=== PATIENT | female | born 1985 | race Two or more races ===

== ENCOUNTER 2020-04-16 18:52 | Emergency (ER) | payer OTHER ==
[~2020-04-16] VITALS: Ht 157.5 cm; Wt 80.7 kg
[~2020-04-16 18:52] MED LIST: NITROFURANTOIN100 M2 ORAL; TRAMADOL HCL50 MG ORAL; ZOFRAN4 M1 ORAL
[2020-04-16] MEDS ORDERED: METFORMIN HCL500 M1 ORAL (19:12)
[2020-04-16] MEDS ORDERED: LOSARTAN-HCTZ1 EAC1 ORAL (19:12)
--- NOTE | 2020-04-16 19:19 | NUR ---
ED Nurse Note: PT AMBULATED TO ED FROM OPTOMITRIST OFFICE, PT IS A HIGH RISK FOR GLAUCOMA AND WAS SEEN TODAY BY HER EYE MD AFTER SEEING "FLOATERS" IN HER L EYE FOR 20+ MINS TODAY, MD STATED THERE WAS HEMMORHAGE IN THE BACK OF HER L EYE AND WAS INSTRUCTED TO COME TO THE ED, PT REPORTS 8/10 PAIN AT BASE OF SKULL. VSS. PT IS A&OX4,
[2020-04-16 19:24] VITALS: BP 121/86
--- NOTE | 2020-04-16 19:50 | NUR ---
ED Nurse: PT TO CT
--- NOTE | 2020-04-16 19:58 | NUR ---
ED Nurse Note: PT BACK FROM CT
--- NOTE | 2020-04-16 20:22 | Diagnostic Imaging Report ---
EXAM: CT Orbits Without Intravenous Contrast CLINICAL HISTORY: CVA TECHNIQUE: Axial computed tomography images of the orbits without intravenous contrast. CTDI is 53.4 mGy and DLP is 992.1 mGy-cm. One or more of the following dose reduction techniques were used: automated exposure control, adjustment of the mA and/or kV according to patient size, use of iterative reconstruction technique. COMPARISON: None FINDINGS: Orbits: The bony orbits are maintained. The globes are intact. The extraocular muscles appear symmetric. Sinuses: Mucous retention cysts are seen within the left maxillary sinus. No air-fluid levels. Bones/joints: No acute fracture. Soft tissues: Unremarkable. IMPRESSION: There is no acute orbital pathology. The bony orbits are intact.
--- NOTE | 2020-04-16 20:25 | Diagnostic Imaging Report ---
EXAM: CT Head Without Intravenous Contrast CLINICAL HISTORY: CVA TECHNIQUE: Axial computed tomography images of the head/brain without intravenous contrast. CTDI is 53.4 mGy and DLP is 992.1 mGy-cm. One or more of the following dose reduction techniques were used: automated exposure control, adjustment of the mA and/or kV according to patient size, use of iterative reconstruction technique. COMPARISON: None FINDINGS: Brain: Unremarkable. No hemorrhage. No significant white matter disease. No edema. Ventricles: Unremarkable. No ventriculomegaly. Bones/joints: Unremarkable. No acute fracture. Soft tissues: Unremarkable. Sinuses: Unremarkable as visualized. No acute sinusitis. Mastoid air cells: Unremarkable as visualized. No mastoid effusion. IMPRESSION: No acute intercranial process.
--- NOTE | 2020-04-16 20:32 | Emergency Room Report ---
History of Present Illness General Chief Complaint: Eye Problems Source: Patient Present Illness HPI This patient was seen by an phlebotomy tech today found to have a retinal hemorrhage. The phlebotomy tech had instructed her to follow-up with their primary care physician for further evaluation to include blood pressure control, carotid ultrasound, cardiac echo and other laboratory work-up. Patient states she is very concerned because the phlebotomy tech had indicated she possibly could have had a small "stroke." Patient has never had anything like this previously. She was having floaters today. The phlebotomy tech did dilate her eye and do a full eye exam. That is when he found the retinal hemorrhage. She states she does have some head "pressure." She has no vision loss. She has no weakness. She denies tingling or numbness. She has no other complaints. Allergies: Coded Allergies: NO KNOWN ALLERGIES (Verified Allergy, Unknown, 01/22/15) COVID-19 Screening Contact w/high risk pt: No Experienced COVID-19 symptoms?: No COVID-19 Testing performed LANDING SIGNAL OFFICER: No Patient History Past Medical History: see triage record, DM, HTN Social History: Denies: smoking, alcohol use, drug use Last Menstrual Period: 03/27/20 Now: No : 1 Para: 0 Reviewed Nursing Documentation: PMH: Agreed; PSxH: Agreed Nursing Documentation-PMH Hx Hypertension: Yes Hx Diabetes: Yes Hx Gastrointestinal Problems: Yes - IUD removal due to vaginal bleeding in 2014 Review of Systems All Other Systems: negative except mentioned in HPI Physical Exam Vital Signs Date Time Temp Pulse Resp B/P (MAP) Pulse Ox O2 Delivery O2 Flow Rate FiO2 04/16/20 19:03 99.0 132 18 121/86 (98) 96 Room Air Sp02 EP Interpretation: reviewed, normal General Appearance: no apparent distress, alert, GCS 15, non-toxic Head: normocephalic, atraumatic Eyes: bilateral eye normal inspection, bilateral eye PERRL ENT: hearing grossly normal, normal pharynx, no angioedema, normal voice Neck: full range of motion, supple/symm/no masses Respiratory: no respiratory distress, no retraction, no accessory muscle use, speaking full sentences Cardiovascular #1: regular rate, rhythm, no edema Gastrointestinal: normal inspection Rectal: deferred Musculoskeletal: back normal, normal range of motion, gait/station normal, non- tender Neurologic: alert, motor strength/tone normal, oriented x3, sensory intact, responsive, speech normal Psychiatric: judgement/insight normal, memory normal, mood/affect normal, no suicidal/homicidal ideation Skin: no rash, normal color Medical Decision Making Diagnostic Impression: 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 Overall, the patient is low risk for CVA and has no history or physical exam findings that make me concerned for this. However, I did obtain a CT of the orbit and head and these are unremarkable. The patient can follow-up with her primary care physician for the other recommended studies to include laboratory work-up that includes a carotid artery ultrasound, echo, ESR, IMTIAZ, lipid profile. I do not feel that this work- up is an emergency. This can all be done as an outpatient. Overall, the patient is well-appearing and has a benign evaluation. She has close follow-up with her phlebotomy tech. No emergency medical condition identified. This patient was evaluated in the context of the global COVID-19 pandemic, which necessitated consideration that the patient might be at risk for infection with the [id number] virus that causes COVID-19. Institutional protocols and algorithms that pertain to the evaluation of patients at risk for COVID-19 and the state of rapid change based on information released by multiple regulatory bodies including the CDC and federal and state organizations. These policies and algorithms were followed during the patient's care in the ED. CT/MRI/US Diagnostic Results CT/MRI/US Diagnostic Results : Imaging Test Ordered: CT head, CT orbit Impression CT head: No acute findings. Specifically no intracranial bleed, mass effect or edema. See official report. CT orbit: No acute findings. See official report in electronic medical record Last Vital Signs Date Time Temp Pulse Resp B/P (MAP) Pulse Ox O2 Delivery O2 Flow Rate FiO2 04/16/20 19:24 99.0 18 121/86 96 Room Air 04/16/20 19:03 132 Status: improved Disposition: HOME, SELF-CARE Condition: Improved Referrals: [facility],REFERRING (PCP) Dione West DO Apr 16, 2020 20:32
[2020-04-16 20:55] VITALS: BP 128/80
--- NOTE | 2020-04-16 20:55 | NUR ---
ER DISCHARGE NOTE: Patient is cleared to be discharged per ERMD, pt is aox4, on room air, with stable vital signs. pt was given dc instructions, pt was able to verbalize understanding, pt id band REMOVED. pt is able to ambulate with steady gait. pt took all belongings.
== END 2020-04-16 20:55 | disposition home or self-care (01) ==
LOC: EMR 19:30
DX: E11.319 Type 2 diabetes mellitus with unspecified diabetic retinopathy without macular edema (principal); H35.62 Retinal hemorrhage, left eye; E11.40 Type 2 diabetes mellitus with diabetic neuropathy, unspecified; I10 Essential (primary) hypertension
CPT/HCPCS: 70450; 70480; Z7502; 99284